=== PATIENT | male | born 1985 | race Two or more races ===

== ENCOUNTER 2023-01-27 19:35 | Emergency (ER) | payer SELFPAY ==
[~2023-01-27] VITALS: Ht 172.7 cm; Wt 147.4 kg
--- NOTE | 2023-01-27 19:45 | NUR ---
[id number]
--- NOTE | 2023-01-27 21:04 | NUR ---
Patient does not wish to proceed with medical care recommended by Dr. reynoso. Patient given information related to possible complications, up to and including , which could occur as a result of leaving the hospital at this time. Patient verbalizes understanding of risks involved due to leaving against medical advice. Patient has signed AMA form.
[2023-01-27 21:05] VITALS: BP 145/80
== END 2023-01-27 21:09 | disposition left against medical advice (07) ==
LOC: ER 19:37
DX: T50.901A Poisoning by unspecified drugs, medicaments and biological substances, accidental (unintentional), initial encounter (principal); E11.9 Type 2 diabetes mellitus without complications; Y92.89 Other specified places as the place of occurrence of the external cause
CPT/HCPCS: 82962-TC